=== PATIENT | female | born 1930 | race African-American/Black ===

== ENCOUNTER 2017-09-26 00:06 | Inpatient (IN) ==
[2017-09-26] MEDS ORDERED: MORPHINE 4 MG/1 ML VIAL IV STA (00:56)
[2017-09-26] MEDS ORDERED: ONDANSETRON 4 MG/2 ML VIAL IV STA (00:56)
[2017-09-26 01:47] LABS: Basophils % 0.1 % (0.0-0.8); Eosinophils % 0.2 % (0.00-10.9); Hematocrit 37.1 VOL% (35.7-47.0); Hemoglobin 12.7 GM/DL (12.0-16.0); Immature Granulocytes % 0.6 %; Lymphocytes # 1.5 10*3/uL (1.4-4.0); Mean Corpuscular HGB Conc 34.2 GM/DL (32-36); Mean Corpuscular Hemoglobin 29 PG (27-34); Mean Corpuscular Volume 85.3 FL (87-102); Mean Platelet Volume 10.1 FL (9.6-12.0); Monocytes # 0.9 10*3/uL (0.11-0.8); Monocytes % 5.2 % (1.7-12.7); Neutrophils # 14.3 10*3/uL (1.4-7.4); Neutrophils % 84.9 % (38.7-73.9); Platelet Count 188 T/CUMM (130-400); Red Blood Count 4.35 MC/CUMM (3.8-5.5); Red Cell Distribution Width 15.2 % (9.3-17.3); White Blood Count 16.8 T/CUMM (4-12)
[2017-09-26 01:56] LABS: INR 1.1; PT Patient Result 11.1 SECS; Partial Thromboplastin Time 27.2 SECS (0-40)
[2017-09-26 01:58] LABS: Albumin 3.6 G/DL (3.4-5.0); Bilirubin,Total 0.6 MG/DL (0.2-1.0); Osmolality,Calculated 299.3 MOS/KG (273-304); Potassium 3.9 MMOL/L (3.5-5.1); Total Protein 8.9 G/DL (6.4-8.3)
[2017-09-26] MEDS ORDERED: DEXTROSE 50% 25 GM/50 ML VIAL IV PRN (04:53)
[2017-09-26] MEDS ORDERED: ACETAMINOPHEN 650 MG SUPP RECTAL PRN (04:53)
[2017-09-26] MEDS ORDERED: ONDANSETRON 4 MG/2 ML VIAL IV PRN (04:53)
[2017-09-26] MEDS ORDERED: GLUCAGON 1 MG VIAL IM PRN (04:53)
[2017-09-26] MEDS ORDERED: hydrALAZINE 20 MG/1 ML VIAL IV PRN (04:53)
[2017-09-26] MEDS ORDERED: SODIUM CHLORIDE 0.45% 500 ML IV SCH (04:53)
[2017-09-26 05:53] LABS: Apearance,Urine Slightly Hazy (Clear); Bacteria,Urine Occasional /HPF (Few); Bilirubin,Urine Negative (Negative); Blood, Urine Small mg/dL (Negative); Glucose,Urine (UA) Negative (Negative); Ketones,Urine Negative (Negative); Mucus,Urine Occasional /LPF (Occasional); Nitrite,Urine Positive (Negative); Protein,Urine 30 MG/DL; RBC,Urine 3 /HPF (0-4); Squamous Epithelial Cell,Urine Occasional /HPF (0-10); Urine Color Yellow (Yellow); Urine Specific Gravity 1.015 (1.001-1.035); Urine Urobilinogen < 2.0 EU/DL (0.2-1.0); WBC,Urine 9 /HPF (0-6)
[2017-09-26] MEDS: cefTRIAXone 1,000 MG in SYRINGE 1 EACH IV SCH (05:54)
[2017-09-26 06:10] LABS: Basophils % 0.2 % (0.0-0.8); Eosinophils # 0.1 10*3/uL (0.0-0.87); Eosinophils % 0.4 % (0.00-10.9); Hematocrit 33.9 VOL% (35.7-47.0); Hemoglobin 11.8 GM/DL (12.0-16.0); Immature Granulocytes % 0.9 %; Immature Granulocytes Absolute 0.16 #; Lymphocytes # 1.7 10*3/uL (1.4-4.0); Lymphocytes % 9.4 % (21.3-54.2); Mean Corpuscular HGB Conc 34.8 GM/DL (32-36); Mean Corpuscular Hemoglobin 29 PG (27-34); Mean Corpuscular Volume 83.5 FL (87-102); Mean Platelet Volume 10.4 FL (9.6-12.0); Monocytes % 5.4 % (1.7-12.7); Neutrophils % 83.7 % (38.7-73.9); Platelet Count 171 T/CUMM (130-400); Red Blood Count 4.06 MC/CUMM (3.8-5.5); Red Cell Distribution Width 15.2 % (9.3-17.3)
[2017-09-26 06:45] LABS: Calcium 8.3 MG/DL (8.5-10.1); Osmolality,Calculated 301.1 MOS/KG (273-304); Potassium 4.3 MMOL/L (3.5-5.1)
[2017-09-26] MEDS: INSULIN REGULAR 100 UNIT/ML SUBCUT SCH ×3 (07:00→18:48)
[2017-09-26] MEDS: MEMANTINE 10 MG TABLET PO SCH ×2 (09:06→23:12)
[2017-09-26] MEDS: traZODone 50 MG TABLET PO SCH ×2 (09:06→23:12)
[2017-09-26] MEDS: amLODIPine 10 MG TABLET PO SCH (09:57)
[2017-09-26] MEDS: CARVEDILOL 6.25 MG TABLET PO SCH ×2 (09:57→17:31)
[2017-09-26] MEDS ORDERED: VANCOMYCIN INJ 1,000 MG in SODIUM CHLORIDE 0.9% 250 ML IV ONE (10:42)
[2017-09-26] MEDS ORDERED: ceFAZolin 1,000 MG in SYRINGE 1 EACH IV ONE (10:42)
[2017-09-26] MEDS ORDERED: VANCOMYCIN 1,000 MG VIAL ONE (10:49)
[2017-09-26] MEDS ORDERED: ceFAZolin 1,000 MG VIAL ONE (10:49)
[2017-09-26] MEDS ORDERED: BACITRACIN OINT 0.9 GM PACK TOP ONE (12:27)
[2017-09-26] MEDS ORDERED: ROPIVACAINE 0.5% 30 ML VIAL ONE (12:41)
[2017-09-26] MEDS ORDERED: oxyCODONE IR 5 MG TABLET PO PRN (12:50)
[2017-09-26] MEDS ORDERED: ACETAMINOPHEN 1,000 MG/100 ML VIAL IV ONE (13:30)
[2017-09-26] MEDS ORDERED: ROCURONIUM 100 MG/10 ML VIAL IV ONE (13:30)
[2017-09-26] MEDS ORDERED: SEVOFLURANE 1 UNIT/15 MINUTE INH ONE (13:30)
[2017-09-26] MEDS ORDERED: fentaNYL 100 MCG/2 ML VIAL ONE (13:30)
[2017-09-26] MEDS ORDERED: PHENYLEPHRINE 10 MG/1 ML VIAL IV ONE (13:30)
[2017-09-26] MEDS ORDERED: ETOMIDATE 40 MG/20 ML VIAL IV ONE (13:30)
[2017-09-26] MEDS: KETOROLAC 15 MG/1 ML VIAL IV SCH ×2 (15:47→18:48)
[2017-09-26] MEDS: LACTATED RINGERS 1,000 ML IV SCH (15:48)
[2017-09-26] MEDS: ACETAMINOPHEN 500 MG TABLET PO SCH ×2 (17:31→23:12)
[2017-09-26] MEDS ORDERED: TEMAZEPAM 15 MG CAPSULE PO SCH (21:00)
[2017-09-26] MEDS: DOCUSATE SODIUM 100 MG CAPSULE PO SCH (23:12)
[2017-09-27] MEDS: KETOROLAC 15 MG/1 ML VIAL IV SCH ×2 (00:41→07:03)
[2017-09-27] MEDS: INSULIN REGULAR 100 UNIT/ML SUBCUT SCH ×4 (00:50→18:06)
[2017-09-27] MEDS: cefTRIAXone 1,000 MG in SYRINGE 1 EACH IV SCH (04:48)
[2017-09-27] MEDS: ACETAMINOPHEN 500 MG TABLET PO SCH ×3 (05:39→10:08)
[2017-09-27 06:26] LABS: Basophils # 0.1 10*3/uL (0.0-0.2); Basophils % 0.4 % (0.0-0.8); Eosinophils # 0.5 10*3/uL (0.0-0.87); Eosinophils % 3.6 % (0.00-10.9); Hemoglobin 9.3 GM/DL (12.0-16.0); Immature Granulocytes % 0.5 %; Immature Granulocytes Absolute 0.07 #; Lymphocytes # 1.7 10*3/uL (1.4-4.0); Lymphocytes % 12.7 % (21.3-54.2); Mean Corpuscular HGB Conc 33.2 GM/DL (32-36); Mean Corpuscular Hemoglobin 29 PG (27-34); Mean Corpuscular Volume 86.4 FL (87-102); Mean Platelet Volume 11.8 FL (9.6-12.0); Monocytes % 7.4 % (1.7-12.7); Neutrophils # 9.9 10*3/uL (1.4-7.4); Neutrophils % 75.4 % (38.7-73.9); Platelet Count 125 T/CUMM (130-400); Red Blood Count 3.24 MC/CUMM (3.8-5.5); Red Cell Distribution Width 15.5 % (9.3-17.3); White Blood Count 13.1 T/CUMM (4-12)
[2017-09-27 06:38] LABS: Calcium 8.2 MG/DL (8.5-10.1); Osmolality,Calculated 301.1 MOS/KG (273-304); Potassium 4.4 MMOL/L (3.5-5.1)
[2017-09-27] MEDS: FONDAPARINUX 2.5 MG/0.5 ML SYRINGE SUBCUT SCH (07:03)
[2017-09-27] MEDS: LACTATED RINGERS 1,000 ML IV SCH ×3 (07:17→20:55)
[2017-09-27] MEDS: DOCUSATE SODIUM 100 MG CAPSULE PO SCH ×2 (08:54→20:47)
[2017-09-27] MEDS: amLODIPine 10 MG TABLET PO SCH (08:55)
[2017-09-27] MEDS: CARVEDILOL 6.25 MG TABLET PO SCH ×2 (08:55→18:00)
[2017-09-27] MEDS: traZODone 50 MG TABLET PO SCH (08:55)
[2017-09-27] MEDS: MEMANTINE 10 MG TABLET PO SCH ×2 (08:55→20:47)
[2017-09-27] MEDS ORDERED: LEVOFLOXACIN 500 MG TABLET PO ONE ×2 (14:00→17:00)
[2017-09-27] MEDS: MORPHINE 4 MG/1 ML VIAL IV PRN (20:47)
[2017-09-28] MEDS: INSULIN REGULAR 100 UNIT/ML SUBCUT SCH ×4 (00:24→18:09)
[2017-09-28 05:55] LABS: Basophils % 0.2 % (0.0-0.8); Eosinophils # 0.5 10*3/uL (0.0-0.87); Eosinophils % 3.3 % (0.00-10.9); Hematocrit 28.9 VOL% (35.7-47.0); Immature Granulocytes % 0.6 %; Immature Granulocytes Absolute 0.09 #; Lymphocytes # 2.1 10*3/uL (1.4-4.0); Mean Corpuscular HGB Conc 34.6 GM/DL (32-36); Mean Corpuscular Hemoglobin 29 PG (27-34); Mean Platelet Volume 11.1 FL (9.6-12.0); Monocytes # 0.9 10*3/uL (0.11-0.8); Monocytes % 6.3 % (1.7-12.7); Neutrophils # 11.1 10*3/uL (1.4-7.4); Neutrophils % 75.6 % (38.7-73.9); Platelet Count 133 T/CUMM (130-400); Red Blood Count 3.48 MC/CUMM (3.8-5.5); Red Cell Distribution Width 15.7 % (9.3-17.3); White Blood Count 14.7 T/CUMM (4-12)
[2017-09-28] MEDS: FONDAPARINUX 2.5 MG/0.5 ML SYRINGE SUBCUT SCH (06:06)
[2017-09-28] MEDS: LACTATED RINGERS 1,000 ML IV SCH ×2 (06:08→18:18)
[2017-09-28] MEDS: MORPHINE 4 MG/1 ML VIAL IV PRN (09:02)
[2017-09-28] MEDS: CARVEDILOL 6.25 MG TABLET PO SCH ×2 (09:25→16:32)
[2017-09-28] MEDS: amLODIPine 10 MG TABLET PO SCH (09:25)
[2017-09-28] MEDS: MEMANTINE 10 MG TABLET PO SCH ×2 (09:26→20:39)
[2017-09-28] MEDS: ASPIRIN EC 81 MG TABLET PO SCH (09:26)
[2017-09-28] MEDS: DOCUSATE SODIUM 100 MG CAPSULE PO SCH ×2 (09:26→20:39)
[2017-09-28] MEDS: LEVOFLOXACIN 250 MG TABLET PO SCH (14:17)
[2017-09-28] MEDS: oxyCODONE IR 5 MG TABLET PO PRN (18:18)
[2017-09-29] MEDS: INSULIN REGULAR 100 UNIT/ML SUBCUT SCH ×5 (00:46→23:53)
[2017-09-29 03:35] LABS: Basophils % 0.2 % (0.0-0.8); Eosinophils # 0.3 10*3/uL (0.0-0.87); Eosinophils % 2.5 % (0.00-10.9); Hematocrit 24.7 VOL% (35.7-47.0); Hemoglobin 8.6 GM/DL (12.0-16.0); Immature Granulocytes % 0.6 %; Immature Granulocytes Absolute 0.06 #; Lymphocytes # 1.7 10*3/uL (1.4-4.0); Lymphocytes % 17.3 % (21.3-54.2); Mean Corpuscular HGB Conc 34.8 GM/DL (32-36); Mean Corpuscular Hemoglobin 29 PG (27-34); Mean Corpuscular Volume 82.6 FL (87-102); Monocytes % 10.1 % (1.7-12.7); Neutrophils # 6.8 10*3/uL (1.4-7.4); Neutrophils % 69.3 % (38.7-73.9); Platelet Count 139 T/CUMM (130-400); Red Blood Count 2.99 MC/CUMM (3.8-5.5); Red Cell Distribution Width 15.6 % (9.3-17.3); White Blood Count 9.9 T/CUMM (4-12)
[2017-09-29 04:00] LABS: Calcium 8.3 MG/DL (8.5-10.1); Osmolality,Calculated 303.1 MOS/KG (273-304); Potassium 4.3 MMOL/L (3.5-5.1)
[2017-09-29] MEDS: FONDAPARINUX 2.5 MG/0.5 ML SYRINGE SUBCUT SCH (06:06)
[2017-09-29] MEDS: LACTATED RINGERS 1,000 ML IV SCH ×2 (07:20→20:57)
[2017-09-29] MEDS: ASPIRIN EC 81 MG TABLET PO SCH (08:15)
[2017-09-29] MEDS: amLODIPine 10 MG TABLET PO SCH (08:15)
[2017-09-29] MEDS: CARVEDILOL 6.25 MG TABLET PO SCH ×2 (08:15→18:13)
[2017-09-29] MEDS: MEMANTINE 10 MG TABLET PO SCH ×2 (08:15→20:58)
[2017-09-29] MEDS: DOCUSATE SODIUM 100 MG CAPSULE PO SCH ×2 (08:15→20:58)
[2017-09-29] MEDS: hydrALAZINE 25 MG TABLET PO SCH ×2 (13:00→20:58)
[2017-09-29] MEDS: LEVOFLOXACIN 250 MG TABLET PO SCH (13:00)
[2017-09-30] MEDS: oxyCODONE IR 5 MG TABLET PO PRN ×2 (02:19→14:43)
[2017-09-30] MEDS: INSULIN REGULAR 100 UNIT/ML SUBCUT SCH ×3 (06:00→18:14)
[2017-09-30] MEDS: FONDAPARINUX 2.5 MG/0.5 ML SYRINGE SUBCUT SCH (06:02)
[2017-09-30 06:16] LABS: Basophils % 0.2 % (0.0-0.8); Eosinophils # 0.3 10*3/uL (0.0-0.87); Eosinophils % 3.5 % (0.00-10.9); Hematocrit 23.5 VOL% (35.7-47.0); Hemoglobin 8.1 GM/DL (12.0-16.0); Immature Granulocytes % 0.6 %; Immature Granulocytes Absolute 0.06 #; Lymphocytes # 1.9 10*3/uL (1.4-4.0); Lymphocytes % 19.6 % (21.3-54.2); Mean Corpuscular HGB Conc 34.5 GM/DL (32-36); Mean Corpuscular Hemoglobin 29 PG (27-34); Mean Corpuscular Volume 83.9 FL (87-102); Mean Platelet Volume 11.6 FL (9.6-12.0); Monocytes # 1.2 10*3/uL (0.11-0.8); Monocytes % 12.5 % (1.7-12.7); NRBC # 0.02 10*3/uL; Neutrophils # 6.3 10*3/uL (1.4-7.4); Neutrophils % 63.6 % (38.7-73.9); Platelet Count 163 T/CUMM (130-400); Red Cell Distribution Width 15.5 % (9.3-17.3); White Blood Count 9.8 T/CUMM (4-12)
[2017-09-30 06:33] LABS: Calcium 8.3 MG/DL (8.5-10.1); Osmolality,Calculated 292.6 MOS/KG (273-304); Potassium 4.1 MMOL/L (3.5-5.1)
[2017-09-30] MEDS: CARVEDILOL 6.25 MG TABLET PO SCH ×2 (09:49→17:25)
[2017-09-30] MEDS: DOCUSATE SODIUM 100 MG CAPSULE PO SCH ×2 (09:49→21:24)
[2017-09-30] MEDS: amLODIPine 10 MG TABLET PO SCH (09:49)
[2017-09-30] MEDS: MEMANTINE 10 MG TABLET PO SCH ×2 (09:49→21:24)
[2017-09-30] MEDS: ASPIRIN EC 81 MG TABLET PO SCH (09:49)
[2017-09-30] MEDS: hydrALAZINE 25 MG TABLET PO SCH ×2 (09:49→21:24)
[2017-09-30] MEDS: LACTATED RINGERS 1,000 ML IV SCH (11:02)
[2017-09-30] MEDS: LEVOFLOXACIN 250 MG TABLET PO SCH (14:12)
[2017-10-01] MEDS: INSULIN REGULAR 100 UNIT/ML SUBCUT SCH ×4 (00:11→17:01)
[2017-10-01] MEDS: LACTATED RINGERS 1,000 ML IV SCH (00:20)
[2017-10-01] MEDS: oxyCODONE IR 5 MG TABLET PO PRN (05:50)
[2017-10-01] MEDS: FONDAPARINUX 2.5 MG/0.5 ML SYRINGE SUBCUT SCH (05:53)
[2017-10-01] MEDS: MEMANTINE 10 MG TABLET PO SCH ×2 (10:50→20:53)
[2017-10-01] MEDS: hydrALAZINE 25 MG TABLET PO SCH ×2 (10:50→20:53)
[2017-10-01] MEDS: amLODIPine 10 MG TABLET PO SCH (10:50)
[2017-10-01] MEDS: ASPIRIN EC 81 MG TABLET PO SCH (10:50)
[2017-10-01] MEDS: DOCUSATE SODIUM 100 MG CAPSULE PO SCH ×2 (10:50→20:53)
[2017-10-01] MEDS: CARVEDILOL 6.25 MG TABLET PO SCH ×2 (10:51→18:27)
[2017-10-01] MEDS: LEVOFLOXACIN 250 MG TABLET PO SCH (15:16)
[2017-10-02] MEDS: INSULIN REGULAR 100 UNIT/ML SUBCUT SCH ×4 (01:55→18:18)
[2017-10-02] MEDS: FONDAPARINUX 2.5 MG/0.5 ML SYRINGE SUBCUT SCH (06:05)
[2017-10-02 06:52] LABS: Basophils % 0.2 % (0.0-0.8); Eosinophils # 0.3 10*3/uL (0.0-0.87); Eosinophils % 2.5 % (0.00-10.9); Hemoglobin 9.2 GM/DL (12.0-16.0); Immature Granulocytes % 0.6 %; Immature Granulocytes Absolute 0.07 #; Lymphocytes # 2.8 10*3/uL (1.4-4.0); Lymphocytes % 25.2 % (21.3-54.2); Mean Corpuscular HGB Conc 35.4 GM/DL (32-36); Mean Corpuscular Hemoglobin 29 PG (27-34); Mean Corpuscular Volume 82.5 FL (87-102); Mean Platelet Volume 10.4 FL (9.6-12.0); Monocytes # 1.3 10*3/uL (0.11-0.8); Monocytes % 11.8 % (1.7-12.7); Neutrophils # 6.6 10*3/uL (1.4-7.4); Neutrophils % 59.7 % (38.7-73.9); Platelet Count 256 T/CUMM (130-400); Red Blood Count 3.15 MC/CUMM (3.8-5.5); Red Cell Distribution Width 15.1 % (9.3-17.3)
[2017-10-02 07:18] LABS: Calcium 8.4 MG/DL (8.5-10.1); Osmolality,Calculated 284.3 MOS/KG (273-304); Potassium 4.1 MMOL/L (3.5-5.1)
[2017-10-02] MEDS: ASPIRIN EC 81 MG TABLET PO SCH (09:46)
[2017-10-02] MEDS: DOCUSATE SODIUM 100 MG CAPSULE PO SCH ×2 (09:46→20:29)
[2017-10-02] MEDS: MEMANTINE 10 MG TABLET PO SCH ×2 (09:46→20:29)
[2017-10-02] MEDS: amLODIPine 10 MG TABLET PO SCH (09:46)
[2017-10-02] MEDS: CARVEDILOL 6.25 MG TABLET PO SCH ×2 (09:46→18:14)
[2017-10-02] MEDS: hydrALAZINE 25 MG TABLET PO SCH ×2 (09:46→20:29)
[2017-10-02 11:34] LABS: % Iron Saturation 17.2 % (18-50); Ferritin 174.6 ng/ml (8-252)
[2017-10-02] MEDS: LEVOFLOXACIN 250 MG TABLET PO SCH (14:22)
[2017-10-02] MEDS: FERROUS SULFATE 325 MG TABLET PO SCH ×2 (14:22→20:29)
[2017-10-03] MEDS: INSULIN REGULAR 100 UNIT/ML SUBCUT SCH ×3 (01:01→12:00)
[2017-10-03] MEDS: FONDAPARINUX 2.5 MG/0.5 ML SYRINGE SUBCUT SCH (06:18)
[2017-10-03] MEDS: hydrALAZINE 25 MG TABLET PO SCH (10:14)
[2017-10-03] MEDS: ASPIRIN EC 81 MG TABLET PO SCH (10:14)
[2017-10-03] MEDS: DOCUSATE SODIUM 100 MG CAPSULE PO SCH (10:14)
[2017-10-03] MEDS: MEMANTINE 10 MG TABLET PO SCH (10:15)
[2017-10-03] MEDS: amLODIPine 10 MG TABLET PO SCH (10:15)
[2017-10-03] MEDS: FERROUS SULFATE 325 MG TABLET PO SCH ×2 (10:15→16:02)
[2017-10-03] MEDS: CARVEDILOL 6.25 MG TABLET PO SCH (10:15)
[2017-10-03 13:27] VITALS: BP 156/83
[2017-10-03] MEDS: LEVOFLOXACIN 250 MG TABLET PO SCH (16:02)
== END 2017-10-03 15:45 | disposition swing bed (61) | DRG 470 ==
LOC: EDUNIT# → EDBD → N.ED 00:06 → N.EDINP 03:23 → N.3E 04:00
PROVIDERS: ADMIT Internal Medicine; ATTEND Internal Medicine